=== PATIENT | male | born 1950 | race Caucasian/White ===

== ENCOUNTER → 2018-05-28 | Outpatient (CLI) | payer MEDICARE, BC ==
[~2018-05-28] MED LIST: ASPI-1441 PO; ATOR20TA65 PO; AUG875 PO; AZIT-1 PO; CALC625T69 PO; INUL2TAB7 PO; LEVO750T44 PO; LOR5/325 PO; MESA400C PO; MESA400C2 PO; METR-1 PO; MULT-820 PO; OMEP-125 PO; OMEP-218 PO; PNEI IM; PNEU0.5D3 IM; RANI-366 PO; TRAM-420 PO
[2018-05-28 08:21] LABS: PLATELET COUNT, AUTOMATED 177 K/uL (150-450)
[2018-05-28 08:46] LABS: LDL CHOLESTEROL 85 mg/dl
== END ==
LOC: LAB 08:08
PROVIDERS: ATTEND Nurse Practitioner Family
DX: E78.5 Hyperlipidemia, unspecified (principal)
CPT/HCPCS: 36415; 82040; 82247; 82310; 82374; 82435; 82465; 82565; 82947; 83718; 84075; 84132; 84155; 84295; 84450; 84460; 84478; 84520; 85025

== ENCOUNTER → 2019-01-14 | Outpatient (CLI) | payer MEDICARE, BC ==
[~2019-01-14] MED LIST changes: +VARI50KI IM
--- NOTE | 2019-01-14 10:39 | RADIOLOGY IMAGING REPORT ---
FACILITY: PATIENT NAME: Lucien Solitario : 1950 MR: [id number] V: [id number] EXAM DATE: ORDERING PHYSICIAN: SONAL JETT TECHNOLOGIST: Location: [facility] [place] Patient: Lucien Solitario : 1950 Visit/Account:[id number] Date of Sevice: 01/14/2019 SHOULDER MIN 2 VIEWS RIGHT Indication: Right shoulder pain. Comparison: None. Findings: The clavicle scapula and proximal humerus are intact. There is mild spurring at the glenoh umeral joint. The visualized right ribs are intact. IMPRESSION: Mild degenerative changes at the right glenohumeral joint. Report Dictated By: Deven Morales at 01/14/2019 10:34 AM Report E-Signed By: Deven Morales at 01/14/2019 10:35 AM WSN:[email or web address]
--- NOTE | 2019-01-14 10:43 | RADIOLOGY IMAGING REPORT ---
FACILITY: [facility] PATIENT NAME: Lucien Solitario : 1950 MR: [id number] V: [id number] EXAM DATE: ORDERING PHYSICIAN: SONAL JETT TECHNOLOGIST: Location: [facility] [place] Patient: Lucien Solitario : 1950 Visit/Account:[id number] Date of Sevice: 01/14/2019 XR HAND 2 VIEWS Indication: bilateral hand pain - 1 MCP Comparison: Left hand radiograph 06/26/2013. Findings: Left hand: There is moderate narrowing of the first carpal metacarpal joint space. There is mild tom rowing of the DIP joint of the middle finger. The remaining joint spaces are smooth. Mineralization is normal. There are no marginal erosions. Right hand: There is mild narrowing of the first carpal metacarpal joint space. There is mild narrow ing of the DIP joint of the second digit. Mineralization is normal. There is no soft tissue swellin g. IMPRESSION: 1. 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 2. Mild degenerative changes at the left hand DIP joint of the middle finger. 3. Mild degenerative changes at the right hand first carpal metacarpal joint space, and the DIP join t of the second digit. Report Dictated By: Deven Morales at 01/14/2019 10:35 AM Report E-Signed By: Deven Morales at 01/14/2019 10:39 AM WSN:[email or web address]
== END ==
LOC: RAD 09:04
PROVIDERS: ATTEND Nurse Practitioner Family
DX: M19.011 Primary osteoarthritis, right shoulder (principal); M19.042 Primary osteoarthritis, left hand; M18.0 Bilateral primary osteoarthritis of first carpometacarpal joints; M19.041 Primary osteoarthritis, right hand; M79.10 Myalgia, unspecified site; Z79.899 Other long term (current) drug therapy; M79.641 Pain in right hand; M79.642 Pain in left hand
CPT/HCPCS: 36415; 82550; 83874; 86200

== ENCOUNTER 2019-02-27 01:15 | Day surgery (SDC) | payer MEDICARE, BC ==
[~2019-02-27] VITALS: Ht 170.2 cm; Wt 65.8 kg
[~2019-02-27 01:15] MED LIST changes: +CHOL10005 PO; +GLUC100026 PO
[2019-02-27] MEDS ORDERED: LIDOCAINE MPF 1% 5 ML VIAL ONE (07:38)
[2019-02-27] MEDS ORDERED: PROPOFOL EMUL(*) 10MG/ML 20 ML 40 ML ONE (07:38)
[2019-02-27 09:03] VITALS: BP 114/83
[2019-02-27] MEDS ORDERED: LIDOCAINE/SOD BICARB 8.4% SYR ID ONE (09:30)
[2019-02-27] MEDS ORDERED: NORMOSOL R SOLN(*) 1000 ML BAG 1,000 ML IV PRN (09:30)
[2019-02-27 10:55] VITALS: BP 94/72
--- NOTE | 2019-02-27 11:03 | Short(Outpt) Discharge Summary ---
Discharge Summary Reason for Hosp/Final Diag: (1) Ulcerative colitis Onset Date: 11/20/2014 Status: Chronic Hospital Course & Plan: Colonoscopy completed without problems. Mild inflammation in sigmoid colon, Sigmoid diverticulosis. Departure Discharge to: Home, Self Care Discharge Instructions Home Meds Active Scripts Mesalamine (Delzicol) 400 Mg Cap.drtab., 1 CAP PO TID, #270 CAP 1 Refill Prov:SONAL JETT APRN NETWORK SECURITY ANALYST-C 01/11/19 Atorvastatin Calcium (ATORVASTATIN CALCIUM) 20 Mg Tablet, 1 TAB PO QHS, #90 TAB 4 Refills Prov:ADRIANNASONAL GOODWIN APRN NETWORK SECURITY ANALYST-C 06/04/18 Varicella-Zoster Ge/As01b/Pf (Shingrix Vial Kit) 50 Mcg/0.5 Ml Kit, 0.5 ML IM DIRECTED, #1 KIT 1 Refill Prov:SONAL JETT APRN NETWORK SECURITY ANALYST-C 06/04/18 Reported Medications Glucosamine Sulfate 2KCL (GLUCOSAMINE) 1,000 Mg Tablet, 1 MG PO DAILY 02/21/19 Cholecalciferol (Vitamin D3) (VITAMIN D3) 1,000 Unit Tablet, 2000 UNIT PO DAILY, TAB 02/21/19 Discontinued Reported Medications Multivitamin (MULTIVITAMINS) 1 Each Tablet, 1 EACH PO DAILY 11/20/14 Diet: Regular Activity: As Tolerated Special Instructions: Your colonoscopy was completed without any problems and your prep was excellent (Good Job!!). I removed 2 small polyps from your colon and they were sent to pathology. My office will call you in the next week or two to let you know what the polyps are but, in any case, I recommend that you have another colonoscopy in 3-5 years due to your history of ulcerative colitis. Problem Qualifiers (1) Ulcerative colitis: Ulcerative colitis location: unspecified ulcerative colitis location Digestive disease complication type: without complication Qualified Codes: K51.90 - Ulcerative colitis, unspecified, without complications KAREN MARITNEZ MD February 27, 2019 11:03
[2019-02-27 11:15] VITALS: BP 108/86
[2019-02-27 11:30] VITALS: BP 106/79
[2019-02-27 11:40] VITALS: BP 115/84
[2019-02-27 11:42] VITALS: BP 101/86
== END 2019-02-27 11:55 | disposition home or self-care (01) ==
LOC: OR 01:15
PROVIDERS: ATTEND Surgery
DX: K63.5 Polyp of colon (principal); K62.1 Rectal polyp
CPT/HCPCS: 00811; 45385; 88305; J2001; J2704